=== PATIENT | male | born 1995 | race Caucasian/White ===

== ENCOUNTER 2022-07-13 00:33 | Emergency (ER) | payer OTHER, MEDICAID ==
[~2022-07-13] VITALS: Ht 172.7 cm; Wt 68.2 kg
[~2022-07-13 00:33] MED LIST: CEPH-357 PO; NO HOME MEDS
[2022-07-13 00:41] VITALS: BP 127/90
--- NOTE | 2022-07-13 01:01 | NUR ---
HAND RUG BRAIDER NOTE: PATIENT REFUSING BLOOD DRAW, THREATENING MULTIPLE STAFF MEMBERS WITH BODILY HARM AND , PATIENT TAKEN TO A GURNEY, HELD DOWN BY [facility] AND SECURITY FOR SAFETY OF THU LUU FOR BLOOD DRAW, PT ESCORTED BACK TO [facility] CAR AFTER
== END 2022-07-13 01:06 ==
LOC: ER 00:33
DX: S80.812A Abrasion, left lower leg, initial encounter (principal); S80.811A Abrasion, right lower leg, initial encounter; M25.561 Pain in right knee; F10.129 Alcohol abuse with intoxication, unspecified; Z72.89 Other problems related to lifestyle; Z79.2 Long term (current) use of antibiotics; V87.7XXA Person injured in collision between other specified motor vehicles (traffic), initial encounter; Y93.89 Activity, other specified; Y92.89 Other specified places as the place of occurrence of the external cause; Y99.8 Other external cause status; Y90.9 Presence of alcohol in blood, level not specified
CPT/HCPCS: 99283